=== PATIENT | male | born 1965 | race African-American/Black ===

== ENCOUNTER 2017-11-22 07:25 | Inpatient (IN) | payer MEDICAID, OTHER ==
--- NOTE | 2017-11-22 08:07 | ED ---
Psych HPI - General Chief Complaint: Psychiatric Symptoms Stated Complaint: Mental health Time Seen by Provider: 11/22/17 07:54 Source: patient, RN notes reviewed, old records reviewed Mode of arrival: ambulatory - History of Present Illness Initial Comments: Is a 52-year-old male presents emergency Department with a chief complaint of suicidal ideations. Patient reports that he plans to jump off a bridge or slit his wrists. Patient states that he's been battling depression for many years now. He is currently been on many medications. He did follow up with [facility] counselor there. He does not relate their name at this time. He reports that he was told if he was having any specific plans or thoughts of harming himself that he needs to come to the emergency department. Patient reports that he is originally from [place], his family is there. He is currently living in a alf at this time. Not employed. He is a half a pack a day smoker. Patient states that he has no physical complaints at this time. Denies any significant past medical history. - Related Data Allergies Allergy/AdvReac Type Severity Reaction Status Date / Time No Known Allergies Allergy Verified 11/22/17 09:13 Review of Systems ROS Statement: Those systems with pertinent positive or pertinent negative responses have been documented in the HPI. ROS Other: All systems not noted in ROS Statement are negative. Past Medical History Additional Past Medical History / Comment(s): back pain History of Any Multi-Drug Resistant Organisms: None Reported Past Surgical History: No Surgical Hx Reported Past Psychological History: Anxiety, Bipolar, Depression, Panic Disorder, PTSD, Schizophrenia Smoking Status: Current every day smoker Past Alcohol Use History: None Reported Past Drug Use History: None Reported General Exam - General Exam Comments Initial Comments: This is a 52-year-old male. No acute distress. Limitations: no limitations General appearance: alert, in no apparent distress Head exam: Present: atraumatic, normocephalic, normal inspection Eye exam: Present: normal appearance, PERRL, EOMI. Absent: scleral icterus, conjunctival injection, periorbital swelling ENT exam: Present: normal exam, mucous membranes moist Neck exam: Present: normal inspection. Absent: tenderness, meningismus, lymphadenopathy Respiratory exam: Present: normal lung sounds bilaterally. Absent: respiratory distress, wheezes, rales, rhonchi, stridor Cardiovascular Exam: Present: regular rate, normal rhythm, normal heart sounds. Absent: systolic murmur, diastolic murmur, rubs, gallop, clicks GI/Abdominal exam: Present: soft, normal bowel sounds. Absent: distended, tenderness, guarding, rebound, rigid Extremities exam: Present: normal inspection, full ROM, normal capillary refill. Absent: tenderness, pedal edema, joint swelling, calf tenderness Back exam: Present: normal inspection Neurological exam: Present: alert, oriented X3, CN II-XII intact Psychiatric exam: Present: normal mood, depressed, suicidal ideation (Suicidal ideation, states that he would jump off a bridge or slit distress.). Absent: normal affect Skin exam: Present: warm, dry, intact, normal color. Absent: rash Course Vital Signs 11/22/17 07:29 Temperature 97.4 F L Pulse Rate 85 Respiratory 18 Rate Blood Pressure 137/90 O2 Sat by Pulse 99 Oximetry Medical Decision Making - Medical Decision Making Patient is a 2-year-old male presents return she declined due to depression and suicidal ideation. Plans to jump off a bridge or cut his wrist. Patient is not currently on medications. Follow with [facility]. Patient's urine drug screen is positive for cocaine. Patient was seen by EPS. Patient will be admitted at this time. Patient signs an alternative for admission. - Lab Data Lab Results 11/22/17 Range/Units 08:04 Urine Opiates Screen Not Detected (NotDetected) Ur Oxycodone Screen Not Detected (NotDetected) Urine Methadone Screen Not Detected (NotDetected) Ur Propoxyphene Screen Not Detected (NotDetected) Ur Barbiturates Screen Not Detected (NotDetected) U Tricyclic Antidepress Not Detected (NotDetected) Ur Phencyclidine Scrn Not Detected (NotDetected) Ur Amphetamines Screen Not Detected (NotDetected) U Methamphetamines Scrn Not Detected (NotDetected) U Benzodiazepines Scrn Not Detected (NotDetected) Urine Cocaine Screen Detected H (NotDetected) U Marijuana (THC) Screen Not Detected (NotDetected) Disposition Clinical Impression: Suicidal ideation, Depression Disposition: TRANSFER TO PSYCH HOSP/UNIT Condition: Good Referrals: None,Stated [Primary Care Provider] - 1-2 days Time of Disposition: 09:19
[2017-11-22 08:30] LABS: Cocaine Screen,Urine Detected (NotDetected); Phencyclidine Screen,Urine Not Detected (NotDetected); Urn Cannabinoid Scrn Not Detected (NotDetected)
[2017-11-22 08:31] LABS: Amphetamine Screen,Urine Not Detected (NotDetected); Barbiturate Screen,Urine Not Detected (NotDetected); Benzodiazepines Screen,Urine Not Detected (NotDetected); Methadone Screen, Urine Not Detected (NotDetected); Opiate Screen,Urine Not Detected (NotDetected); Oxycodone Screen, Urine Not Detected (NotDetected); Tricyclic Antidepressant,Urine Not Detected (NotDetected)
[2017-11-22] MEDS ORDERED: MAG HYDROX/AL HYDROX/SIMETH 30 ML CUP PO PRN (09:22)
[2017-11-22] MEDS ORDERED: ACETAMINOPHEN TAB 325 MG TAB PO PRN (09:22)
[2017-11-22] MEDS ORDERED: MAGNESIUM HYDROXIDE 2,400 MG/10 ML CUP PO PRN (09:22)
[2017-11-22 09:53] LABS: Amorphous Sediment,Urine Rare /hpf; Appearance,Urine Clear (Clear); Bilirubin,Urine Negative (Negative); Blood,Urine Negative (Negative); Calcium Oxalate Crystals,Urine Rare /hpf; Color,Urine Yellow; Glucose,Urine (UA) Negative (Negative); Ketones,Urine Trace (Negative); Leukocyte Esterase,Urine Large (Negative); Mucus,Urine Rare /hpf; Nitrite,Urine Negative (Negative); Protein,Urine 1+ (Negative); Specific Gravity,Urine 1.027 (1.001-1.035); Squamous Epithelial Cell,Urine 1 /hpf (0-4); WBC,Urine 16 /hpf (0-5)
[2017-11-22] MEDS: FLUoxetine HCL 20 MG CAP PO SCH (14:02)
[2017-11-22] MEDS: OLANZapine 5 MG TAB PO SCH ×2 (14:02→21:50)
[2017-11-22] MEDS: NICOTINE POLACRILEX 2 MG GUM BUCCAL PRN (14:03)
[2017-11-22 16:23] VITALS: BMI 21.2
--- NOTE | 2017-11-22 16:50 | P.HPMEDMHU ---
History of Present Illness H&P Date: 11/22/17 Chief Complaint: suicidal ideations 52 y/o male that was admitted to the psych unit with suicidal ideations.Patient said he would throw himself off a bridge or cut his wrist. Pt denies any medical problems Review of Systems All systems: negative Constitutional: Denies fever, Denies lethargy Cardiovascular: Denies chest pain, Denies palpitations Respiratory: Denies cough, Denies dyspnea Gastrointestinal: Denies abdominal pain, Denies nausea, Denies vomiting Past Medical History Additional Past Medical History / Comment(s): Chronic back pain. History of Any Multi-Drug Resistant Organisms: None Reported Past Surgical History: No Surgical Hx Reported Past Anesthesia/Blood Transfusion Reactions: No Reported Reaction Past Psychological History: Anxiety, Bipolar, Depression, Panic Disorder, PTSD, Schizophrenia Smoking Status: Current every day smoker Past Alcohol Use History: None Reported Additional Past Alcohol Use History / Comment(s): Pt. denies ETOH use. BAT O Past Drug Use History: Cocaine Additional Drug Use History / Comment(s): Pt. admits to cocaine use. Last use 11/21/17. - Past Family History Mother Family Medical History: Asthma Additional Family Medical History / Comment(s): Patient is currently at the age of [age] years old. Father Family Medical History: No Reported History Additional Family Medical History / Comment(s): Father is . Medications and Allergies Home Medications Medication Instructions Recorded Confirmed Type No Known Home Medications [No 11/22/17 11/22/17 History Known Home Medications] Allergies Allergy/AdvReac Type Severity Reaction Status Date / Time No Known Allergies Allergy Verified 11/22/17 10:12 Physical Exam Vitals: Vital Signs Temp Pulse Pulse Resp BP BP Pulse Ox 11/22/17 10:07 97.6 F 68 16 128/81 100 11/22/17 09:27 97.8 F 75 17 129/70 100 11/22/17 07:29 97.4 F L 85 18 137/90 99 Intake and Output 11/22/17 11/22/17 11/22/17 06:59 14:59 22:59 Other: Weight 4.451 kg 71.214 kg Patient Weight 11/23/17 06:59 Weight 71.214 kg - Constitutional General appearance: no acute distress - EENT Eyes: EOMI, PERRLA - Neck Neck: no lymphadenopathy, no stridor - Respiratory Respiratory: bilateral: CTA, negative: rales, wheezing - Cardiovascular Rhythm: regular Heart sounds: normal: S1, S2 - Gastrointestinal General gastrointestinal: normal bowel sounds - Integumentary Integumentary: no pale, no rash - Neurologic Neurologic: CNII-XII intact - Musculoskeletal Musculoskeletal: gait normal, strength equal bilaterally - Psychiatric Psychiatric: A&O x's 3, appropriate affect Cranial Nerve Examination - Cranial Nerves Cranial Nerve II- Optic: Intact Cranial Nerve III- Oculomotor: Intact Cranial Nerve IV- Trochlear: Intact Cranial Nerve V- Trigeminal: Intact Cranial Nerve - Abducens: Intact Cranial Nerve VII- Facial: Intact Cranial Nerve VIII- Auditory: Intact Cranial Nerve IX- Glossopharyngeal: Intact Cranial Nerve X- Vagus: Intact Cranial Nerve XI- Accessory: Intact Cranial Nerve XII- Hypoglossal: Intact Results Labs: Abnormal Lab Results - Last 24 Hours (Table) 11/22/17 11/22/17 Range/Units 08:04 08:04 Urine Protein 1+ H (Negative) Urine Ketones Trace H (Negative) Ur Leukocyte Esterase Large H (Negative) Urine WBC 16 H (0-5) /hpf Calcium Oxalate Crystal Rare H (None) /hpf Amorphous Sediment Rare H (None) /hpf Urine Mucus Rare H (None) /hpf Urine Cocaine Screen Detected H (NotDetected) Thrombosis Risk Factor Assmnt - Choose All That Apply Any of the Below Risk Factors Present?: Yes Each Factor Represents 1 point: Age 41-60 years, Varicose veins Other Risk Factors: No Other congenital or acquired thrombophilia - If yes, enter type in comment: No Thrombosis Risk Factor Assessment Total Risk Factor Score: 2 Thrombosis Risk Factor Assessment Level: Low Risk Assessment and Plan (1) Depression Current Visit: Yes Status: Acute Code(s): F32.9 - MAJOR DEPRESSIVE DISORDER , SINGLE EPISODE, UNSPECIFIED SNOMED Code(s): 65650410 (2) Suicidal ideation Current Visit: Yes Status: Acute Code(s): R45.851 - SUICIDAL IDEATIONS SNOMED Code(s): 0732745 Plan: plans per psychiatry
[2017-11-22] MEDS: traZODone HCL 50 MG TAB PO SCH (21:50)
[2017-11-23 07:49] LABS: Basophils % (A) 1 %; Eosinophils # (A) 0.1 k/uL (0-0.7); Eosinophils % (A) 3 %; HCT 46.7 % (39.0-53.0); HGB 14.5 gm/dL (13.0-17.5); Lymphocytes # (A) 1.4 k/uL (1.0-4.8); Lymphocytes % (A) 42 %; MCHC 31.1 g/dL (31.0-37.0); MCV 93.3 fL (80.0-100.0); Mean Platelet Volume 7.3; Monocytes # (A) 0.3 k/uL (0-1.0); Monocytes % (A) 9 %; Neutrophils # (A) 1.4 k/uL (1.3-7.7); Neutrophils % (A) 42 %; Platelet Count 193 k/uL (150-450); RBC 5.01 m/uL (4.30-5.90); RDW 12.3 % (11.5-15.5); WBC 3.3 k/uL (3.8-10.6)
[2017-11-23 08:35] LABS: AST 28 U/L (17-59); Albumin 4.3 g/dL (3.5-5.0); Alkaline Phosphatase 70 U/L (38-126); Anion Gap 8 mmol/L; Blood Urea Nitrogen 17 mg/dL (9-20); Calcium 10.3 mg/dL (8.4-10.2); Carbon Dioxide 33 mmol/L (22-30); Chloride 104 mmol/L (98-107); Glucose 104 mg/dL (74-99); Sodium 145 mmol/L (137-145); Total Protein 7.4 g/dL (6.3-8.2)
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
[2017-11-23 08:58] LABS: ALT 40 U/L (21-72)
[2017-11-23 09:05] LABS: Potassium 4.2 mmol/L (3.5-5.1)
[2017-11-23] MEDS: FLUoxetine HCL 20 MG CAP PO SCH (09:26)
[2017-11-23] MEDS: OLANZapine 5 MG TAB PO SCH ×2 (09:26→22:35)
[2017-11-23] MEDS: NICOTINE POLACRILEX 2 MG GUM BUCCAL PRN ×3 (09:27→22:35)
--- NOTE | 2017-11-23 14:29 | PN ---
PROGRESS NOTE DATE OF SERVICE: 11/23/2017. CHIEF COMPLAINT: The patient was depressed. He had suicide thoughts. He has had stress over struggles in his marriage. INTERVAL HISTORY: The patient has been doing fair. He states he had a quiet evening last night. He slept well. Today he has been up. He has been in a fairly good mood. He says he has had some problems with headaches, although he was having that before coming into the hospital. We talked about discharge planning issues. He has been living at [facility] since he moved to [place] November 07. He plans to return there. He still has struggles with sorting out plans for his marriage. He says he has business to attend to in this area including getting his ID. He has not had change in his general health. He tolerates his psychotropic medications. MENTAL STATUS: Patient gave good eye contact. Psychomotor activity was a little slowed. Speech was normal. Thoughts were clear. He had a calm manner. He did not appear to be distressed. ASSESSMENT: I will continue the current diagnosis and treatment plan. The patient has been making progress. His mood seems to be stabilizing. I would look towards discharge early in the week. MMODL / IJN: [id number] /
[2017-11-23] MEDS: traZODone HCL 50 MG TAB PO SCH (22:35)
[2017-11-24] MEDS: FLUoxetine HCL 20 MG CAP PO SCH (09:40)
[2017-11-24] MEDS: NICOTINE POLACRILEX 2 MG GUM BUCCAL PRN ×4 (09:40→19:50)
[2017-11-24] MEDS: OLANZapine 5 MG TAB PO SCH ×2 (09:40→21:43)
--- NOTE | 2017-11-24 16:38 | P.PN ---
Progress Note - Text Date of service: 11/24/2017 Chief complaint: "I'm feeling better but still has some symptoms " Subjective: The patient has been seen today as follow-up, chart reviewed, case discussed with the treatment team. Patient slept about more than 6 hours last night but it takes too long to get to sleep. Patient has not persistently been going to groups and other unit activities. Patient reports fair appetite problems. The patient reported feeling improvement, but he still has symptoms of auditory hallucination which comes and goes. He denies any commanding hallucinations. He reported his depression is relatively better and his anxiety is less. He denies active suicidal thoughts and he denies any homicidal ideation. The patient is compliant with his medications and denies any adverse reactions. Review of other systems: Patient denies any physical symptoms besides what has been mentioned above. No breathing problems, no chest pain reported today. Objective: Vitals has been reviewed. Mental status examination; Appearance: The patient appears stated age, fairly groomed, no specific features. Gait/posture:normal gait, Normal arm swinging: No abnormal movements. Attitude and behavior: engaged, cooperative, eye contact. Motor activity: normal psychomotor activity Speech: Normal rate and dressed Mood: Depressed, anxious Affect: Constricted to flat Thought form: goal-directed, linear, coherent. Thought content: Non-delusional, denies suicidal thoughts, denies homicidal thoughts, denies intentions or plans. Perception: Denies visual hallucinations. He reported intermittent auditory hallucinations Attention: No impairment. Patient was able to repeat serial 5. Orientation: Patient patient was fully oriented to time place person and situation. Insight: Patient has limited insight about his psychiatric disorder. Judgment: Patient has limited judgment about his psychiatric treatment. Assessment: Major depressive disorder, recurrent, severe with psychotic features PTSD Plan: Continue with inpatient psychiatric hospitalization for monitoring and continue treatment. Continue group therapy and other unit activities. Continue psychiatric medications: Kidney Prozac 20 mg daily for depression and Zyprexa 5 mg twice a day as a mood stabilizer We will increase trazodone to 100 mg to address his sleep problems.
[2017-11-24] MEDS ORDERED: traZODone HCL 100 MG TAB PO SCH (21:00)
[2017-11-25] MEDS: OLANZapine 5 MG TAB PO SCH ×2 (10:01→21:02)
[2017-11-25] MEDS: FLUoxetine HCL 20 MG CAP PO SCH (10:01)
[2017-11-25] MEDS: NICOTINE POLACRILEX 2 MG GUM BUCCAL PRN ×2 (16:27→21:03)
--- NOTE | 2017-11-25 17:04 | P.PN ---
Progress Note - Text Date of service: 11/25/2017 Chief complaint: "I'm feeling relatively better " Subjective: The patient has been seen today as follow-up, chart reviewed, case discussed with the treatment team. Patient slept about broken 5 hours last night. Patient has been going to groups and other unit activities. Patient reports fair appetite problems. The patient reported his asleep is still interrupted and he still feeling depressed. He admitted for some improvement of his depression and he denies suicidal thoughts. Patient denies auditory hallucinations but addressed at that sometimes hears somebody whistling. She reported to still has bouts of severe anxiety with racing thoughts The patient is compliant with his medications and denies any adverse reactions. Review of other systems: Patient denies any physical symptoms besides what has been mentioned above. No breathing problems, no chest pain reported today. Objective: Vitals has been reviewed. Mental status examination; Appearance: The patient appears stated age, fairly groomed, no specific features. Gait/posture:normal gait, Normal arm swinging: No abnormal movements. Attitude and behavior: engaged, cooperative, eye contact. Motor activity: normal psychomotor activity Speech: Normal rate and dressed Mood: Depressed, anxious Affect: Constricted Thought form: goal-directed, linear, coherent. Thought content: Non-delusional, denies suicidal thoughts, denies homicidal thoughts, denies intentions or plans. Perception: Denies visual hallucinations. Denies auditory hallucinations Attention: No impairment. Patient was able to repeat serial 5. Orientation: Patient patient was fully oriented to time place person and situation. Insight: Patient has better insight about his psychiatric disorder. Judgment: Patient has better judgment about his psychiatric treatment. Assessment: Major depressive disorder, recurrent, severe with psychotic features PTSD Plan: Continue with inpatient psychiatric hospitalization for monitoring and continue treatment. Continue group therapy and other unit activities. Continue psychiatric medications: Continue Zyprexa as a mood stabilizer. Increase trazodone to 150 mg for better sleep and to help with depression. He is of Prozac to 30 mg daily to help with the depression and anxiety
[2017-11-25] MEDS: traZODone HCL 50 MG TAB PO SCH (21:02)
[2017-11-26] MEDS: FLUoxetine HCL 10 MG CAP PO SCH (08:12)
[2017-11-26] MEDS: OLANZapine 5 MG TAB PO SCH ×2 (08:12→21:15)
[2017-11-26] MEDS: NICOTINE POLACRILEX 2 MG GUM BUCCAL PRN ×3 (09:06→21:17)
--- NOTE | 2017-11-26 15:06 | P.PN ---
Progress Note - Text Date of service:11/26/2017 Chief complaint: "I am feeling better" Subjective: The patient has been seen today as follow-up, chart reviewed, case discussed with the treatment team. Patient slept about 8 hours last night. Patient has been going to groups and other unit activities. Patient reports good appetite. Patient reports feeling stable emotionally and denies feeling depressed or suicidal. He denies any drastic mood swings and reported his anxiety is "best" controlled since few months ago. He denies hearing voices or any other hallucinations. He presented organized, coherent with no delusions reported or identified. He reports willing to be discharged and he is already has his [facility] intake appointment tomorrow. The patient is compliant with his medications and denies any adverse reactions. Review of other systems: Patient denies any physical symptoms besides what has been mentioned above. No breathing problems, no chest pain reported today. Objective: Vitals has been reviewed. Mental status examination; Appearance: The patient appears stated age, fairly groomed, no specific features. Gait/posture:normal gait, Normal arm swinging: No abnormal movements. Attitude and behavior: engaged, cooperative, eye contact. Motor activity: normal psychomotor activity Speech: Normal rate and dressed Mood: anxious Affect: Constricted Thought form: goal-directed, linear, coherent. Thought content: Non-delusional, denies suicidal thoughts, denies homicidal thoughts, denies intentions or plans. Perception: Denies visual hallucinations. Denies auditory hallucinations Attention: No impairment. Patient was able to repeat serial 5. Orientation: Patient patient was fully oriented to time place person and situation. Insight: Patient has fair insight about his psychiatric disorder. Judgment: Patient has fair judgment about his psychiatric treatment. Assessment: Major depressive disorder, recurrent, severe with psychotic features PTSD Plan: Continue with inpatient psychiatric hospitalization for monitoring and continue treatment. Continue group therapy and other unit activities. Continue psychiatric medications: Zyprexa as a mood stabilizer, Prozac and trazodone for depression and anxiety. Discharge planning is in going
[2017-11-26] MEDS: traZODone HCL 50 MG TAB PO SCH (21:14)
[2017-11-27 06:47] VITALS: BP 124/80; PULSE 61; RESP 18; TEMP 97.9
[2017-11-27] MEDS: FLUoxetine HCL 10 MG CAP PO SCH (09:07)
[2017-11-27] MEDS: OLANZapine 5 MG TAB PO SCH (09:07)
[2017-11-27] MEDS: NICOTINE POLACRILEX 2 MG GUM BUCCAL PRN (09:08)
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
== END 2017-11-27 11:55 | disposition home or self-care (01) | DRG 885 ==
LOC: EC 07:25 → 3MHU 09:21
PROVIDERS: ADMIT Psychiatry & Neurology Psychiatry; ATTEND Psychiatry & Neurology Psychiatry
DX: F33.3 Major depressive disorder, recurrent, severe with psychotic symptoms (principal); R45.851 Suicidal ideations; F43.10 Post-traumatic stress disorder, unspecified; F41.9 Anxiety disorder, unspecified; Z62.810 Personal history of physical and sexual abuse in childhood; G47.9 Sleep disorder, unspecified; F14.10 Cocaine abuse, uncomplicated; F17.200 Nicotine dependence, unspecified, uncomplicated; F41.0 Panic disorder [episodic paroxysmal anxiety]; G89.29 Other chronic pain; M54.5 Low back pain; G47.00 Insomnia, unspecified; R51 Headache; Z59.0 Homelessness
CPT/HCPCS: 80053; 80306; 81001; 82075; 84443; 85025; 99285

== ENCOUNTER 2019-06-19 14:04 | Emergency (ER) | payer OTHER ==
[2019-06-19 14:12] VITALS: RESP 18; TEMP 98.6
[2019-06-19] MEDS ORDERED: KETOROLAC 30 MG/ML 1 ML VIAL IM STA (14:32)
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
[2019-06-19] MEDS ORDERED: LIDOCAINE 5% PATCH TOPICAL STA (15:18)
[2019-06-19] MEDS ORDERED: CYCLOBENZAPRINE 10 MG TAB PO STA (15:18)
[2019-06-19] MEDS ORDERED: DEXAMETHASONE SOD PHOSPHATE 4 MG/ML 1 ML VIAL IM STA (15:18)
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
[2019-06-19 16:46] VITALS: BP 152/98; PULSE 55
== END 2019-06-19 16:41 | disposition home or self-care (01) ==
LOC: EC 14:04
DX: M54.2 Cervicalgia (principal); M54.5 Low back pain; M51.36 Other intervertebral disc degeneration, lumbar region; M50.321 Other cervical disc degeneration at C4-C5 level; F17.200 Nicotine dependence, unspecified, uncomplicated; V49.9XXA Car occupant (driver) (passenger) injured in unspecified traffic accident, initial encounter; Y92.410 Unspecified street and highway as the place of occurrence of the external cause
CPT/HCPCS: 99284; 96372 ×2; 51798; 72050; 72100; J1100; J1885

== ENCOUNTER → 2020-12-06 | Outpatient (CLI) | payer OTHER ==
--- NOTE | 2020-12-06 15:35 | XR ---
EXAMINATION TYPE: XR knee complete RT DATE OF EXAM: 12/06/2020 COMPARISON: NONE HISTORY: Pain TECHNIQUE: Three views are submitted. FINDINGS: Joint spaces are preserved. Osseous structures are intact. No acute fracture seen. Small amount of fluid in the suprapatellar bursa. IMPRESSION: 1. No acute fracture or dislocation.
--- NOTE | 2020-12-06 15:36 | XR ---
EXAMINATION TYPE: XR shoulder complete RT DATE OF EXAM: 12/06/2020 COMPARISON: NONE HISTORY: Pain TECHNIQUE: Three views are submitted. FINDINGS: The osseous structures are intact. There is no acute fracture or dislocation. AC joint arthropathy. IMPRESSION: 1. AC joint arthropathy.
== END | disposition home or self-care (01) ==
LOC: RADXRMAIN 15:04
PROVIDERS: ATTEND Nurse Practitioner
DX: M12.811 Other specific arthropathies, not elsewhere classified, right shoulder (principal); M25.561 Pain in right knee

== ENCOUNTER → 2021-01-15 | Outpatient (CLI) | payer OTHER ==
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
== END | disposition home or self-care (01) ==
LOC: RADMRIMAIN 12:40
PROVIDERS: ATTEND Psychiatry & Neurology Neurology
DX: M51.27 Other intervertebral disc displacement, lumbosacral region (principal); M51.36 Other intervertebral disc degeneration, lumbar region; M47.816 Spondylosis without myelopathy or radiculopathy, lumbar region
CPT/HCPCS: 72148

== ENCOUNTER 2024-09-09 15:58 | Emergency (ER) | payer OTHER ==
[2024-09-09 16:17] VITALS: BP 125/79; PULSE 78; RESP 20; TEMP 98.3
[2024-09-09] MEDS ORDERED: KETOROLAC 15 MG/ML 1 ML VIAL IM STA (17:26)
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
== END 2024-09-09 18:40 | disposition left against medical advice (07) ==
LOC: EC 15:58
DX: M54.50 Low back pain, unspecified (principal); F17.200 Nicotine dependence, unspecified, uncomplicated; Z53.29 Procedure and treatment not carried out because of patient's decision for other reasons; V49.9XXA Car occupant (driver) (passenger) injured in unspecified traffic accident, initial encounter; Y92.410 Unspecified street and highway as the place of occurrence of the external cause
CPT/HCPCS: 72110; 99283